=== PATIENT | male | born 1985 | race African-American/Black ===

== ENCOUNTER 2018-11-18 14:59 | Emergency (ER) | payer MEDICAID ==
[~2018-11-18] VITALS: Ht 188 cm; Wt 77.3 kg
[2018-11-18 15:42] VITALS: Ht 188 cm; Wt 77.3 kg
[2018-11-18] MEDS ORDERED: ZPAK PO (18:09)
[2018-11-18] MEDS ORDERED: TESSALON PERLE100 MG PO (18:11)
[2018-11-18] MEDS ORDERED: FLUTICASONE PRO16 GM NASAL (18:11)
[2018-11-18 19:00] VITALS: BP 123/78
== END 2018-11-18 19:00 | disposition home or self-care (01) ==
LOC: D.ER 14:59
DX: J40 Bronchitis, not specified as acute or chronic (principal); J01.90 Acute sinusitis, unspecified